=== PATIENT | female | born 1965 | race Caucasian/White ===

== ENCOUNTER 2022-07-03 07:15 | Inpatient (IN) | payer OTHER ==
[2022-07-25] MEDS ORDERED: Celecoxib 200 MG Cap PO ONE (05:45)
[2022-07-25] MEDS ORDERED: Scopolamine 1.5 MG Transdermal Patch TOP SCH (05:45)
[2022-07-25] MEDS ORDERED: Dextrose 5%-Lactated Ringers 1,000 ML IV SCH (06:30)
[2022-07-25] MEDS ORDERED: cefOXitin 2 GM Vial ONE (06:35)
[2022-07-25] MEDS ORDERED: fentaNYL 250 MCG/5 ML SDV ONE ×2 (07:07→07:48)
[2022-07-25] MEDS ORDERED: Ondansetron 4 MG/2 ML SDV ONE (07:08)
[2022-07-25] MEDS ORDERED: Neostigmine Methylsulfate 1 MG/ML 5 ML Syringe ONE (07:08)
[2022-07-25] MEDS ORDERED: Propofol 200 MG/20 ML SDV ONE (07:08)
[2022-07-25] MEDS ORDERED: Dexamethasone 4 MG/ML SDV ONE (07:08)
[2022-07-25] MEDS ORDERED: Rocuronium 50 MG/5 ML Vial ONE ×2 (07:08→08:30)
[2022-07-25] MEDS ORDERED: Glycopyrrolate 0.2 MG/ML 5 ML MDV ONE (07:08)
[2022-07-25] MEDS ORDERED: Succinylcholine 200 MG/10 ML MDV ONE (07:08)
[2022-07-25 07:13] LABS: HEMOGLOBIN A1C 6.2 % (4.5-6.2)
[2022-07-25] MEDS ORDERED: cefOXitin 2 GM in Sodium Chloride 0.9% 50 ML IV ONE (07:15)
[2022-07-25] MEDS ORDERED: Ketamine 500 MG/5 ML MDV IV SCH (07:30)
[2022-07-25] MEDS ORDERED: Ketamine 18 MG in Sodium Chloride 0.9% 19.82 ML IV SCH (07:30)
[2022-07-25] MEDS ORDERED: Lactated Ringers 1,000 ML ONE (08:02)
[2022-07-25] MEDS ORDERED: Labetalol 20 MG/4 ML Syringe ONE (08:08)
[2022-07-25] MEDS ORDERED: hydrOXYzine HCl 50 MG/ML SDV IM ONE (09:33)
[2022-07-25] MEDS ORDERED: fentaNYL 50 MCG/ML SDV IV ONE (09:33)
[2022-07-25] MEDS: Dextrose 5%-Lactated Ringers 1,000 ML IV SCH (11:00)
[2022-07-25] MEDS ORDERED: Metoclopramide 10 MG/2 ML SDV IVPUSH PRN (11:00)
[2022-07-25] MEDS ORDERED: diphenhydrAMINE 50 MG/ML SDV IVPUSH PRN (11:00)
[2022-07-25] MEDS ORDERED: Acetaminophen 500 MG Tab PO PRN (11:00)
[2022-07-25] MEDS ORDERED: Ondansetron 4 MG/2 ML SDV IVPUSH PRN (11:00)
[2022-07-25] MEDS ORDERED: Labetalol 20 MG/4 ML Syringe IVPUSH PRN (11:00)
[2022-07-25] MEDS ORDERED: HYDROmorphone 1 MG/ML Syringe IV PRN (11:00)
[2022-07-25] MEDS: HYDROmorphone 0.5 MG/0.5 ML Syringe IVPUSH PRN ×2 (11:12→13:29)
[2022-07-25] MEDS: cefOXitin 2 GM in Sodium Chloride 0.9% 50 ML IV SCH ×2 (13:27→19:26)
[2022-07-25] MEDS ORDERED: Pantoprazole 40 MG Vial IVPUSH SCH (14:00)
[2022-07-25] MEDS ORDERED: hydrOXYzine HCl 50 MG/ML SDV IM PRN (14:00)
[2022-07-25] MEDS: traMADol 50 MG Tab PO PRN (15:21)
[2022-07-25] MEDS: Acetaminophen 500 MG Tab PO SCH ×2 (15:21→21:59)
[2022-07-25] MEDS ORDERED: MVI, Adult with Vitamin K 10 ML, Thiamine 200 MG, Zinc/Copper/Manganese/Selenium 1 ML i... IV SCH ×4 (16:00)
[2022-07-25] MEDS: Heparin Sodium 5,000 Units/ML Vial SUBCUT SCH (17:07)
[2022-07-25] MEDS: Carvedilol 3.125 MG Tab PO SCH (17:07)
[2022-07-25] MEDS: Gabapentin 300 MG Cap PO SCH (20:38)
[2022-07-25] MEDS: Venlafaxine 75 MG Tab PO SCH (20:38)
[2022-07-25] MEDS: oxyCODONE 5 MG Tab PO PRN (20:39)
[2022-07-26] MEDS: Dextrose 5%-Lactated Ringers 1,000 ML IV SCH ×2 (00:29→06:26)
[2022-07-26] MEDS ORDERED: Iopamidol 612 MG/ML 30 ML SDV PO STA (01:55)
[2022-07-26] MEDS: cefOXitin 2 GM in Sodium Chloride 0.9% 50 ML IV SCH ×2 (02:08→08:11)
[2022-07-26] MEDS: oxyCODONE 5 MG Tab PO PRN ×2 (02:11→17:40)
[2022-07-26] MEDS: Heparin Sodium 5,000 Units/ML Vial SUBCUT SCH ×2 (06:16→17:41)
[2022-07-26] MEDS: Acetaminophen 500 MG Tab PO SCH ×3 (06:17→22:19)
[2022-07-26] MEDS ORDERED: Ondansetron 4 MG Tab.DIS PO PRN (07:56)
[2022-07-26] MEDS ORDERED: hydrOXYzine HCl 25 MG Tab PO PRN (07:57)
[2022-07-26] MEDS ORDERED: Dextrose 5%-Lactated Ringers 1,000 ML IV SCH (08:00)
[2022-07-26] MEDS: Levothyroxine 100 MCG, Levothyroxine 25 MCG, Levothyroxine 50 MCG PO SCH ×3 (08:05)
[2022-07-26] MEDS: Carvedilol 3.125 MG Tab PO SCH ×2 (08:05→16:34)
[2022-07-26] MEDS: Losartan 50 MG Tab PO SCH (08:06)
[2022-07-26] MEDS: amLODIPine 5 MG Tab PO SCH (08:06)
[2022-07-26] MEDS: Spironolactone 25 MG Tab PO SCH (08:06)
[2022-07-26] MEDS: Aspirin 81 MG Tab.EC PO SCH (08:06)
[2022-07-26] MEDS: Venlafaxine 75 MG Tab PO SCH ×2 (08:06→20:07)
[2022-07-26] MEDS: SCOPOLAMINE PATCH CHECK TOP SCH (08:07)
[2022-07-26] MEDS: Hydrochlorothiazide 25 MG Tab PO SCH (08:07)
[2022-07-26] MEDS: Isosorbide Mononitrate 30 MG Tab.ER PO SCH (08:07)
[2022-07-26] MEDS: Celecoxib 200 MG Cap PO SCH ×2 (08:08→20:08)
[2022-07-26] MEDS: Modafinil 100 MG Tab PO SCH (08:11)
[2022-07-26] MEDS: Cyclobenzaprine 10 MG Tab PO PRN (11:59)
[2022-07-26] MEDS ORDERED: Pantoprazole 40 MG Delayed-Release Granules 1 Packet PO SCH (16:30)
[2022-07-26] MEDS: Gabapentin 300 MG Cap PO SCH (20:08)
[2022-07-27] MEDS: Heparin Sodium 5,000 Units/ML Vial SUBCUT SCH (05:17)
[2022-07-27] MEDS: Acetaminophen 500 MG Tab PO SCH (05:17)
[2022-07-27] MEDS: traMADol 50 MG Tab PO PRN (05:19)
[2022-07-27] MEDS ORDERED: Magnesium Hydroxide 400 MG/5 ML Susp 30 ML Cup PO PRN (07:11)
[2022-07-27] MEDS: Levothyroxine 100 MCG, Levothyroxine 25 MCG, Levothyroxine 50 MCG PO SCH ×3 (07:55)
[2022-07-27] MEDS: Carvedilol 3.125 MG Tab PO SCH (07:56)
[2022-07-27] MEDS: Celecoxib 200 MG Cap PO SCH (08:40)
[2022-07-27] MEDS: Aspirin 81 MG Tab.EC PO SCH (08:41)
[2022-07-27] MEDS: Hydrochlorothiazide 25 MG Tab PO SCH (08:41)
[2022-07-27] MEDS: Isosorbide Mononitrate 30 MG Tab.ER PO SCH (08:41)
[2022-07-27] MEDS: Spironolactone 25 MG Tab PO SCH (08:42)
[2022-07-27] MEDS: amLODIPine 5 MG Tab PO SCH (08:42)
[2022-07-27] MEDS: Venlafaxine 75 MG Tab PO SCH (08:42)
[2022-07-27] MEDS: Losartan 50 MG Tab PO SCH (08:42)
[2022-07-27] MEDS: Modafinil 100 MG Tab PO SCH (08:44)
[2022-07-27] MEDS: SCOPOLAMINE PATCH CHECK TOP SCH (08:46)
[2022-07-27] MEDS: Cyclobenzaprine 10 MG Tab PO PRN (08:58)
[2022-07-27] MEDS ORDERED: Cyanocobalamin (Vitamin B12) 1,000 MCG/ML SDV IM ONE (09:00)
== END 2022-07-27 10:40 | disposition home or self-care (01) | DRG 620 ==
LOC: JP.SDSSCHI 07-25 05:23 → JP.MS 07-25 09:35
PROVIDERS: ADMIT Nurse Practitioner Family; ATTEND Surgery
PROC: 0D164ZA Bypass Stomach to Jejunum, Percutaneous Endoscopic Approach (ICD-10-PCS; principal; 2022-07-25)
PROC: 0FB24ZX Excision of Left Lobe Liver, Percutaneous Endoscopic Approach, Diagnostic (ICD-10-PCS; 2022-07-25)
PROC: 0BQT4ZZ Repair Diaphragm, Percutaneous Endoscopic Approach (ICD-10-PCS; 2022-07-25)
DX: E66.01 Morbid (severe) obesity due to excess calories (principal); I50.32 Chronic diastolic (congestive) heart failure; R16.0 Hepatomegaly, not elsewhere classified; K44.9 Diaphragmatic hernia without obstruction or gangrene; G47.33 Obstructive sleep apnea (adult) (pediatric); I11.0 Hypertensive heart disease with heart failure; E03.9 Hypothyroidism, unspecified; F41.9 Anxiety disorder, unspecified; F32.A Depression, unspecified; G25.81 Restless legs syndrome; I25.10 Atherosclerotic heart disease of native coronary artery without angina pectoris; Z68.43 Body mass index [BMI] 50.0-59.9, adult; Z95.5 Presence of coronary angioplasty implant and graft; Z79.899 Other long term (current) drug therapy; Z79.82 Long term (current) use of aspirin
CPT/HCPCS: 36415; 74240; 74240-26; 82947; 83036; 84443; 86850; 86900; 86901; 88307; 88313; 93005; A9270-GY; C9113; J0131; J0171; J0330; J0694; J1100; J1170; J1644; J2405; J2704; J2710; J2795; J3010; J3410; J3411; J3420; J3490; J7120; J7121; Q9967

== ENCOUNTER 2022-09-05 06:44 | Day surgery (SDC) | payer OTHER ==
[2022-09-05 07:12] LABS: BASOPHILS ABSOLUTE AUTO 0.03 K/uL (0.00-0.10); BASOPHILS PERCENT AUTO 0.5 % (0.1-1.3); EOSINOPHILS ABSOLUTE AUTO 0.17 K/uL (0.00-0.40); EOSINOPHILS PERCENT AUTO 2.6 % (0.0-5.4); HEMATOCRIT 39.2 % (34.3-46.0); IMMATURE GRAN ABSOLUTE AUTO 0.03 K/uL (0.00-0.23); IMMATURE GRAN PERCENT AUTO 0.5 % (0.0-0.7); LYMPHOCYTES ABSOLUTE AUTO 1.16 K/uL (0.8-3.3); LYMPHOCYTES PERCENT AUTO 17.5 % (11.4-47.7); MEAN CORPUSCULAR HGB CONC 33.2 g/dL (31.6-35.5); MEAN CORPUSCULAR VOLUME 93.3 fL (81.4-99.0); MONOCYTES ABSOLUTE AUTO 0.49 K/uL (0.20-0.90); MONOCYTES PERCENT AUTO 7.4 % (3.3-12.6); NEUTROPHILS ABSOLUTE AUTO 4.76 K/uL (1.0-7.6); NEUTROPHILS PERCENT AUTO 71.5 % (40.0-78.1); PLATELET COUNT,PLT 308 K/uL (130-375); WHITE BLOOD CELL COUNT,WBC 6.6 K/uL (3.2-11.0)
[2022-09-05] MEDS ORDERED: fentaNYL 50 MCG/ML SDV ONE (07:14)
[2022-09-05] MEDS ORDERED: Midazolam 1 MG/ML 2 ML SDV ONE (07:15)
[2022-09-05] MEDS ORDERED: Propofol 200 MG/20 ML SDV ONE (07:15)
[2022-09-05] MEDS ORDERED: Cyanocobalamin (Vitamin B12) 1,000 MCG/ML SDV IM ONE (07:30)
[2022-09-05] MEDS ORDERED: Lactated Ringers 1,000 ML IV SCH (07:30)
[2022-09-05 08:04] LABS: A/G RATIO 0.8 (1.2-2.2); ALANINE AMINOTRANSFERASE,ALT 44 U/L (12-78); ALBUMIN 3.6 g/dL (3.4-5.0); ALKALINE PHOSPHATASE 124 U/L (46-116); ASPARTATE AMNIOTRANSFERASE,AST 39 U/L (15-37); BILIRUBIN TOTAL 0.7 mg/dL (0.2-1.0); BLOOD UREA NITROGEN,BUN 12 mg/dL (7-18); CALCIUM 9.1 mg/dL (8.5-10.1); CARBON DIOXIDE,CO2 29 mmol/L (21-32); CHLORIDE,CL 98 mmol/L (100-108); CREATININE 0.9 mg/dL (0.6-1.0); EST CRCL DRUG DOSING (CG) 68.68 mL/min; ESTIMATED GFR 76 mL/min (>60); GLUCOSE RANDOM 116 mg/dL (74-106); MAGNESIUM 1.9 mg/dL (1.8-2.4); PHOSPHORUS 3.6 mg/dL (2.5-4.9); POTASSIUM,K 3.7 mmol/L (3.6-5.2); PROTEIN TOTAL,TP 7.9 g/dL (6.4-8.2); SODIUM,NA 138 mmol/L (140-148)
[2022-09-05 08:06] LABS: ANION GAP 14.7 mmol/L (5.0-14.0)
[2022-09-05] MEDS ORDERED: Glycopyrrolate 0.2 MG/ML 2 ML SDV IVPUSH ONE (08:15)
[2022-09-05] MEDS ORDERED: MVI, Adult with Vitamin K 10 ML, Thiamine 200 MG, Zinc/Copper/Manganese/Selenium 1 ML i... IV ONE ×4 (08:30)
== END 2022-09-05 10:59 | disposition home or self-care (01) ==
LOC: JP.SDS 06:44
PROVIDERS: ATTEND Surgery
DX: K94.23 Gastrostomy malfunction (principal); R13.10 Dysphagia, unspecified; F41.9 Anxiety disorder, unspecified; F32.A Depression, unspecified; E11.9 Type 2 diabetes mellitus without complications; I25.10 Atherosclerotic heart disease of native coronary artery without angina pectoris; Z88.1 Allergy status to other antibiotic agents; Z79.899 Other long term (current) drug therapy; Z87.891 Personal history of nicotine dependence
CPT/HCPCS: 36415; 80053; 83735; 84100; 85025; C1726; J2250; J2704; J3010; J3411; J3420; J3490; J7120

== ENCOUNTER 2022-09-19 07:02 | Day surgery (SDC) | payer OTHER ==
[2022-09-19] MEDS ORDERED: Lactated Ringers 1,000 ML IV SCH (08:00)
[2022-09-19] MEDS ORDERED: fentaNYL 100 MCG/2 ML SDV ONE (08:00)
[2022-09-19] MEDS ORDERED: Propofol 200 MG/20 ML SDV ONE (08:00)
[2022-09-19] MEDS ORDERED: Cyanocobalamin (Vitamin B12) 1,000 MCG/ML SDV IM ONE (08:00)
[2022-09-19] MEDS ORDERED: Midazolam 1 MG/ML 2 ML SDV ONE (08:01)
[2022-09-19] MEDS ORDERED: Glycopyrrolate 0.2 MG/ML 2 ML SDV IVPUSH ONE (08:30)
[2022-09-19] MEDS ORDERED: Dexamethasone 4 MG/ML SDV ONE (08:46)
[2022-09-19] MEDS ORDERED: MVI, Adult with Vitamin K 10 ML, Thiamine 200 MG, Chromium/Copper/Mang/Selen/Zn 1 ML in... IV ONE ×4 (09:00)
== END 2022-09-19 11:10 | disposition home or self-care (01) ==
LOC: JP.SDS 07:02
PROVIDERS: ATTEND Surgery
DX: K91.89 Other postprocedural complications and disorders of digestive system (principal); K31.89 Other diseases of stomach and duodenum; F41.9 Anxiety disorder, unspecified; R06.02 Shortness of breath; F32.A Depression, unspecified; I10 Essential (primary) hypertension; I25.119 Atherosclerotic heart disease of native coronary artery with unspecified angina pectoris; K58.9 Irritable bowel syndrome, unspecified; K21.9 Gastro-esophageal reflux disease without esophagitis; E03.9 Hypothyroidism, unspecified; E66.9 Obesity, unspecified; Z98.84 Bariatric surgery status; Z98.0 Intestinal bypass and anastomosis status; Z88.1 Allergy status to other antibiotic agents; Z68.41 Body mass index [BMI] 40.0-44.9, adult
CPT/HCPCS: 43245; J1100; J2250; J2704; J3010; J3411; J3420; J3490; J7120

== ENCOUNTER 2022-10-10 06:09 | Day surgery (SDC) | payer OTHER ==
[2022-10-10] MEDS: Lactated Ringers 1,000 ML IV SCH (06:45)
[2022-10-10] MEDS ORDERED: Midazolam 1 MG/ML 2 ML SDV ONE (06:58)
[2022-10-10] MEDS ORDERED: fentaNYL 50 MCG/ML SDV ONE (06:58)
[2022-10-10] MEDS ORDERED: Propofol 200 MG/20 ML SDV ONE (06:58)
[2022-10-10] MEDS: Cyanocobalamin (Vitamin B12) 1,000 MCG/ML SDV IM ONE (07:23)
[2022-10-10] MEDS: MVI, Adult with Vitamin K 10 ML, Thiamine 200 MG, Chromium/Copper/Mang/Selen/Zn 1 ML in... IV SCH ×4 (07:44)
[2022-10-10] MEDS: Glycopyrrolate 0.2 MG/ML 2 ML SDV IVPUSH ONE (08:00)
== END 2022-10-10 10:15 | disposition home or self-care (01) ==
LOC: JP.SDS 06:09
PROVIDERS: ATTEND Surgery
DX: R13.14 Dysphagia, pharyngoesophageal phase (principal); K31.89 Other diseases of stomach and duodenum; K91.2 Postsurgical malabsorption, not elsewhere classified; I25.10 Atherosclerotic heart disease of native coronary artery without angina pectoris; K21.9 Gastro-esophageal reflux disease without esophagitis; E03.9 Hypothyroidism, unspecified; F63.3 Trichotillomania; G25.81 Restless legs syndrome; M17.0 Bilateral primary osteoarthritis of knee; I11.0 Hypertensive heart disease with heart failure; I50.9 Heart failure, unspecified; G47.30 Sleep apnea, unspecified; E55.9 Vitamin D deficiency, unspecified; F41.9 Anxiety disorder, unspecified; E66.9 Obesity, unspecified; Z98.51 Tubal ligation status; Z95.5 Presence of coronary angioplasty implant and graft; Z98.84 Bariatric surgery status; Z98.0 Intestinal bypass and anastomosis status; Z79.890 Hormone replacement therapy; Z79.899 Other long term (current) drug therapy; Z88.1 Allergy status to other antibiotic agents; Z68.41 Body mass index [BMI] 40.0-44.9, adult
CPT/HCPCS: 43245; 76000; J2250; J2704; J3010; J3411; J3420; J3490; J7120

== ENCOUNTER 2022-11-21 06:57 | Day surgery (SDC) | payer OTHER ==
[2022-11-21] MEDS ORDERED: Midazolam 1 MG/ML 2 ML SDV ONE (07:02)
[2022-11-21] MEDS ORDERED: Propofol 200 MG/20 ML SDV ONE (07:02)
[2022-11-21] MEDS ORDERED: fentaNYL 50 MCG/ML SDV ONE (07:02)
[2022-11-21] MEDS ORDERED: Glycopyrrolate 0.2 MG/ML 5 ML MDV IVPUSH ONE (08:00)
[2022-11-21] MEDS: Lactated Ringers 1,000 ML IV SCH (08:08)
[2022-11-21] MEDS: Cyanocobalamin (Vitamin B12) 1,000 MCG/ML SDV IM ONE (08:10)
[2022-11-21] MEDS ORDERED: Dexamethasone 4 MG/ML SDV ONE (08:43)
[2022-11-21] MEDS: MVI, Adult with Vitamin K 10 ML, Thiamine 200 MG, Zinc/Copper/Manganese/Selenium 1 ML i... IV ONE ×4 (09:30)
== END 2022-11-21 12:10 | disposition home or self-care (01) ==
LOC: JP.SDS 06:57
PROVIDERS: ATTEND Surgery
DX: K94.23 Gastrostomy malfunction (principal); I11.0 Hypertensive heart disease with heart failure; I50.9 Heart failure, unspecified; G47.33 Obstructive sleep apnea (adult) (pediatric); I25.10 Atherosclerotic heart disease of native coronary artery without angina pectoris; F41.9 Anxiety disorder, unspecified; F32.A Depression, unspecified; E66.9 Obesity, unspecified; Z68.39 Body mass index [BMI] 39.0-39.9, adult; Z88.1 Allergy status to other antibiotic agents; Z79.899 Other long term (current) drug therapy
CPT/HCPCS: 43249; J1100; J2250; J2704; J3010; J3411; J3420; J7120; J3490